=== PATIENT | female | born 1965 | race Caucasian/White ===

== ENCOUNTER 2019-01-10 12:51 | Inpatient (IN) ==
[2019-01-10 14:20] LABS: Basophils # 0.1 K/mcL (0.0-0.2); Basophils % 0.5 %; Eosinophils # 0.1 K/mcL (0.0-0.6); Eosinophils % 1.2 %; Hematocrit 51.5 % (35.3-44.9); Hemoglobin 17.1 g/dL (11.5-15.4); Immature Granulocytes % 0.3 % (0-4); Lymphocytes % 27.7 %; Mean Corpuscular HGB Conc 33.2 g/dL (31.6-35.5); Mean Corpuscular Hemoglobin 29.1 pg (28.0-33.3); Mean Corpuscular Volume 87.7 fL (83.0-100.0); Mean Platelet Volume 10.1 fL (9.4-12.4); Monocytes # 0.6 K/mcL (0.0-1.3); Monocytes % 5.3 %; Neutrophils # 6.9 K/mcL (1.6-8.9); Platelet Count 345 K/mcL (140-400); Red Blood Count 5.87 M/mcL (3.82-4.97); White Blood Count 10.7 K/mcL (4.3-11.1)
[2019-01-10 14:52] LABS: Alanine Aminotransferase 16 Units/L (7-52); Albumin 4.2 g/dL (3.5-5.7); Albumin/Globulin Ratio 1.3 (1.1-2.2); Alkaline Phosphatase 105 Units/L (34-104); Amylase 765 Units/L (29-103); Aspartate Amino Transferase 10 Units/L (13-39); BUN/Creatinine Ratio 15 (6-26); Bilirubin,Direct 0.1 mg/dL (0.0-0.2); Bilirubin,Indirect 0.3 mg/dL (0.0-1.2); Bilirubin,Total 0.4 mg/dL (0.3-1.0); Blood Urea Nitrogen 11 mg/dL (6-20); Calcium 9.7 mg/dL (8.6-10.3); Carbon Dioxide 25 mEq/L (23-29); Chloride 99 mEq/L (98-107); Globulin 3.2 g/dL (2.4-3.5); Glucose 247 mg/dL (70-105); Osmolality,Calculated 284 (280-300); Potassium 4.2 mEq/L (3.5-5.1); Sodium 133 mEq/L (136-145); Total Protein 7.4 g/dL (6.4-8.9); eGFR For African Americans > 60 (> 60); eGFR For Non-African Americans > 60 (> 60)
[2019-01-10] MEDS ORDERED: Isovue-370 500 ML BOTTLE IVP ONE (16:43)
[2019-01-10] MEDS ORDERED: Ondansetron 4 MG/2 ML VIAL IVP ONE (16:43)
[2019-01-10 17:24] LABS: Lipase > 1800 Units/L (11-82)
[2019-01-10] MEDS: 0.9 % Sodium Chloride 1,000 ML IVC SCH ×2 (17:52→19:45)
[2019-01-10] MEDS ORDERED: 0.9 % Sodium Chloride 1,000 ML IVC ONE (18:09)
[2019-01-10 18:15] LABS: Bilirubin,Urine Negative (Negative); Blood,Urine Negative (Negative); Clarity,Urine Cloudy (Clear); Color,Urine Yellow (Yellow); Glucose,Urine (UA) >=1000 mg/dL (Normal); Ketones,Urine 15 mg/dL (Negative); Leukocyte Esterase,Urine Small (Negative); Nitrite,Urine Positive (Negative); PH,Urine 5.5 pH Units (5.0-8.0); Protein,Urine Negative (Neg-Trace); Specific Gravity,Urine 1.029 (1.010-1.025); Urobilinogen,Urine Normal (Normal)
[2019-01-10 18:16] LABS: Bacteria,Urine Many per hpf (None-Few); Hyaline Casts,Urine None Seen per lpf (None-Few); RBC,Urine 0-3 per hpf (0-3); Squamous Epithelial Cell,Urine Many per lpf (None-Few); WBC,Urine 30-50 per hpf (0-3)
[2019-01-10] MEDS ORDERED: cefTRIAXone 1,000 MG in Water for inj. (sterile) 10 ML IVP ONE (18:24)
[2019-01-10] MEDS ORDERED: Ketorolac 15 MG/ML VIAL IVP ONE (19:08)
[2019-01-10] MEDS ORDERED: Naloxone 0.4 MG/ML INJ IVP PRN (22:33)
[2019-01-11] MEDS: Acetaminophen 325 MG TABLET PO PRN ×3 (02:28→22:32)
[2019-01-11] MEDS: 0.9 % Sodium Chloride 1,000 ML IVC SCH ×6 (02:28→17:27)
[2019-01-11] MEDS ORDERED: *HR* Dextrose 50 % in Water (Syg) 50 ML SYRINGE IVP PRN (03:43)
[2019-01-11] MEDS ORDERED: D5% in Water 1,000 ML IVC PRN (03:43)
[2019-01-11] MEDS ORDERED: Dextrose Gel 15 GM/37.5 ML TUBE PO PRN ×2 (03:43)
[2019-01-11 04:58] LABS: Basophils % 0.3 %; Eosinophils # 0.2 K/mcL (0.0-0.6); Eosinophils % 2.4 %; Hematocrit 46.1 % (35.3-44.9); Immature Granulocytes % 0.6 % (0-4); Lymphocytes # 2.5 K/mcL (0.6-4.6); Lymphocytes % 28.6 %; Mean Corpuscular HGB Conc 32.8 g/dL (31.6-35.5); Mean Corpuscular Hemoglobin 29.3 pg (28.0-33.3); Mean Corpuscular Volume 89.3 fL (83.0-100.0); Mean Platelet Volume 10.2 fL (9.4-12.4); Monocytes # 0.7 K/mcL (0.0-1.3); Monocytes % 7.6 %; Neutrophils # 5.3 K/mcL (1.6-8.9); Platelet Count 306 K/mcL (140-400); Red Blood Count 5.16 M/mcL (3.82-4.97); Red Cell Distribution Width 12.9 % (11.5-14.5); Segmented Neutrophils % 60.5 %; White Blood Count 8.7 K/mcL (4.3-11.1)
[2019-01-11 05:05] LABS: Prothrombin Time 10.8 Seconds (9.4-12.1)
[2019-01-11 05:08] LABS: Activated Partial Thrombo Time 30.8 Seconds (26.0-36.0)
[2019-01-11 05:11] LABS: Hemoglobin 15.1 g/dL (11.5-15.4)
[2019-01-11 05:18] LABS: Alanine Aminotransferase 12 Units/L (7-52); Albumin 3.1 g/dL (3.5-5.7); Albumin/Globulin Ratio 1.2 (1.1-2.2); Alkaline Phosphatase 80 Units/L (34-104); Aspartate Amino Transferase 9 Units/L (13-39); BUN/Creatinine Ratio 17 (6-26); Bilirubin,Total 0.2 mg/dL (0.3-1.0); Blood Urea Nitrogen 10 mg/dL (6-20); Calcium 8.5 mg/dL (8.6-10.3); Carbon Dioxide 22 mEq/L (23-29); Chloride 105 mEq/L (98-107); Chol/HDL Ratio 3.2 (0-4.9); Cholesterol 152 mg/dL (< 200); Globulin 2.5 g/dL (2.4-3.5); Glucose 219 mg/dL (70-105); HDL Cholesterol 48 mg/dL (40-59); LDL Cholesterol,Calculated 84 mg/dL (0-99); Magnesium 1.8 mg/dL (1.6-2.6); Osmolality,Calculated 286 (280-300); Phosphorous 3.2 mg/dL (2.7-4.5); Potassium 3.7 mEq/L (3.5-5.1); Sodium 135 mEq/L (136-145); Total Protein 5.6 g/dL (6.4-8.9); Triglycerides 101 mg/dL (< 150); eGFR For African Americans > 60 (> 60); eGFR For Non-African Americans > 60 (> 60)
[2019-01-11] MEDS: Insulin LISPRO 300 UNITS/3 ML VIAL SQ SCH ×4 (08:20→20:37)
[2019-01-11 09:28] LABS: Lipase > 1800 Units/L (11-82)
[2019-01-11] MEDS: *HR* Heparin 5,000 UNIT/ML VIAL SQ SCH (17:28)
[2019-01-11] MEDS ORDERED: Ondansetron 4 MG/2 ML VIAL IVP PRN (17:38)
[2019-01-12] MEDS: 0.9 % Sodium Chloride 1,000 ML IVC SCH ×3 (02:33→20:32)
[2019-01-12 04:33] LABS: Basophils % 0.2 %; Eosinophils # 0.1 K/mcL (0.0-0.6); Eosinophils % 1.5 %; Hematocrit 44.4 % (35.3-44.9); Hemoglobin 14.6 g/dL (11.5-15.4); Immature Granulocytes % 0.3 % (0-4); Lymphocytes % 22.7 %; Mean Corpuscular HGB Conc 32.9 g/dL (31.6-35.5); Mean Corpuscular Hemoglobin 29.4 pg (28.0-33.3); Mean Corpuscular Volume 89.5 fL (83.0-100.0); Mean Platelet Volume 10.4 fL (9.4-12.4); Monocytes # 0.6 K/mcL (0.0-1.3); Monocytes % 7.3 %; Platelet Count 288 K/mcL (140-400); Red Blood Count 4.96 M/mcL (3.82-4.97); Red Cell Distribution Width 12.8 % (11.5-14.5); White Blood Count 8.8 K/mcL (4.3-11.1)
[2019-01-12 04:53] LABS: BUN/Creatinine Ratio 13 (6-26); Blood Urea Nitrogen 7 mg/dL (6-20); Calcium 8.6 mg/dL (8.6-10.3); Carbon Dioxide 21 mEq/L (23-29); Chloride 107 mEq/L (98-107); Glucose 201 mg/dL (70-105); Magnesium 1.8 mg/dL (1.6-2.6); Osmolality,Calculated 282 (280-300); Phosphorous 2.9 mg/dL (2.7-4.5); Potassium 3.9 mEq/L (3.5-5.1); Sodium 134 mEq/L (136-145); eGFR For African Americans > 60 (> 60); eGFR For Non-African Americans > 60 (> 60)
[2019-01-12] MEDS: *HR* Heparin 5,000 UNIT/ML VIAL SQ SCH ×2 (05:44→18:10)
[2019-01-12] MEDS: Insulin LISPRO 300 UNITS/3 ML VIAL SQ SCH ×4 (10:47→20:32)
[2019-01-12] MEDS: cefTRIAXone 1,000 MG in Water for inj. (sterile) 10 ML IVP SCH (10:58)
[2019-01-12] MEDS: Acetaminophen 325 MG TABLET PO PRN (12:32)
[2019-01-13 02:25] LABS: Basophils % 0.4 %; Eosinophils # 0.1 K/mcL (0.0-0.6); Eosinophils % 1.3 %; Hematocrit 44.2 % (35.3-44.9); Hemoglobin 14.5 g/dL (11.5-15.4); Immature Granulocytes % 0.4 % (0-4); Lymphocytes % 24.8 %; Mean Corpuscular HGB Conc 32.8 g/dL (31.6-35.5); Mean Corpuscular Hemoglobin 28.6 pg (28.0-33.3); Mean Corpuscular Volume 87.2 fL (83.0-100.0); Mean Platelet Volume 10.1 fL (9.4-12.4); Monocytes # 0.5 K/mcL (0.0-1.3); Monocytes % 5.7 %; Neutrophils # 5.3 K/mcL (1.6-8.9); Platelet Count 287 K/mcL (140-400); Red Blood Count 5.07 M/mcL (3.82-4.97); Red Cell Distribution Width 12.8 % (11.5-14.5); Segmented Neutrophils % 67.4 %; White Blood Count 7.9 K/mcL (4.3-11.1)
[2019-01-13 02:42] LABS: BUN/Creatinine Ratio 9 (6-26); Blood Urea Nitrogen 5 mg/dL (6-20); Calcium 8.8 mg/dL (8.6-10.3); Carbon Dioxide 20 mEq/L (23-29); Chloride 105 mEq/L (98-107); Glucose 158 mg/dL (70-105); Magnesium 1.7 mg/dL (1.6-2.6); Osmolality,Calculated 283 (280-300); Phosphorous 2.9 mg/dL (2.7-4.5); Potassium 3.8 mEq/L (3.5-5.1); Sodium 136 mEq/L (136-145); eGFR For African Americans > 60 (> 60); eGFR For Non-African Americans > 60 (> 60)
[2019-01-13] MEDS: 0.9 % Sodium Chloride 1,000 ML IVC SCH (04:32)
[2019-01-13] MEDS: *HR* Heparin 5,000 UNIT/ML VIAL SQ SCH ×2 (05:05→18:08)
[2019-01-13 08:30] LABS: Lipase 1031 Units/L (11-82)
[2019-01-13] MEDS: cefTRIAXone 1,000 MG in Water for inj. (sterile) 10 ML IVP SCH (09:07)
[2019-01-13] MEDS: Insulin LISPRO 300 UNITS/3 ML VIAL SQ SCH ×3 (09:08→16:52)
[2019-01-13 11:32] LABS: Estimated Average Glucose 338 mg/dl
[2019-01-13 14:49] VITALS: BP 137/91
[2019-01-13 15:42] LABS: Estimated Average Glucose 332 mg/dl
[2019-01-16 10:44] LABS: ANA IgG by ELISA NONE DETECTED (None Detected); Immunoglobulin G Subclass 4 29 mg/dL (1-123)
== END 2019-01-13 18:53 | disposition home or self-care (01) | DRG 440 ==
LOC: EMEROOARM 12:51 → 3ANU 12:51
PROVIDERS: ADMIT Internal Medicine Nephrology; ATTEND Internal Medicine Nephrology

== ENCOUNTER 2020-02-19 18:45 | Inpatient (IN) ==
[2020-02-19] MEDS ORDERED: *HR* Heparin 5,000 UNIT/ML VIAL ONE (18:55)
[2020-02-19] MEDS ORDERED: *HR* Ticagrelor 90 MG TABLET ONE (18:55)
[2020-02-19] MEDS ORDERED: Aspirin 81 MG TAB.CHEW ONE (18:56)
[2020-02-19] MEDS ORDERED: 0.9 % Sodium Chloride 1,000 ML ONE ×3 (18:56→19:52)
[2020-02-19] MEDS ORDERED: Ondansetron 4 MG/2 ML VIAL ONE (19:00)
[2020-02-19] MEDS ORDERED: *HR* Heparin 5,000 UNIT/ML VIAL IVP PRN ×2 (19:01)
[2020-02-19] MEDS ORDERED: *HR* Heparin 5,000 UNIT/ML VIAL IVP ONE (19:01)
[2020-02-19] MEDS ORDERED: Ondansetron 4 MG/2 ML VIAL IVP ONE (19:01)
[2020-02-19] MEDS ORDERED: *HR* Ticagrelor 90 MG TABLET PO ONE (19:01)
[2020-02-19] MEDS ORDERED: Aspirin 81 MG TAB.CHEW PO ONE (19:01)
[2020-02-19] MEDS ORDERED: 0.9 % Sodium Chloride 1,000 ML IVC ONE (19:01)
[2020-02-19 19:15] LABS: Basophils # 0.1 K/mcL (0.0-0.2); Basophils % 0.6 %; Eosinophils # 0.2 K/mcL (0.0-0.6); Eosinophils % 1.8 %; Hemoglobin 17.4 g/dL (11.5-15.4); Immature Granulocytes % 0.4 % (0-4); Lymphocytes # 3.3 K/mcL (0.6-4.6); Lymphocytes % 30.5 %; Mean Corpuscular HGB Conc 33.5 g/dL (31.6-35.5); Mean Corpuscular Hemoglobin 29.4 pg (28.0-33.3); Mean Corpuscular Volume 87.8 fL (83.0-100.0); Mean Platelet Volume 10.2 fL (9.4-12.4); Monocytes # 0.9 K/mcL (0.0-1.3); Neutrophils # 6.3 K/mcL (1.6-8.9); Platelet Count 397 K/mcL (140-400); Red Blood Count 5.92 M/mcL (3.82-4.97); Segmented Neutrophils % 58.7 %; White Blood Count 10.8 K/mcL (4.3-11.1)
[2020-02-19] MEDS ORDERED: Heparin 25,000UNIT/250ML 1/2NS 25,000 UNIT/250 ML IV.SOLN IVC SCH (19:15)
[2020-02-19 19:23] LABS: INR 0.9; Prothrombin Time 10.5 Seconds (9.4-12.1)
[2020-02-19] MEDS ORDERED: ISOVUE-370 200 ML INFUS..BTL ONE ×2 (19:25→19:28)
[2020-02-19] MEDS ORDERED: Heparin 1,000 UNITS/500 mL 500 ML ONE (19:25)
[2020-02-19] MEDS ORDERED: Nitroglycerin 1,000 MCG/10 ML VIAL IV ONE (19:25)
[2020-02-19] MEDS ORDERED: *HR* Heparin 10,000 UNIT/10 ML VIAL ONE (19:25)
[2020-02-19] MEDS ORDERED: *HR* Midazolam HCl 5 MG/5 ML VIAL IVP ONE (19:30)
[2020-02-19 19:34] LABS: BUN/Creatinine Ratio 31 (6-26); Blood Urea Nitrogen 22 mg/dL (6-20); Calcium 9.6 mg/dL (8.6-10.3); Carbon Dioxide 19 mEq/L (23-29); Chloride 100 mEq/L (98-107); Glucose 398 mg/dL (70-105); Magnesium 1.9 mg/dL (1.6-2.6); Osmolality,Calculated 290 (280-300); Potassium 4.2 mEq/L (3.5-5.1); Sodium 130 mEq/L (136-145); Troponin I < 0.03 ng/mL (< 0.04); eGFR For African Americans > 60 (> 60); eGFR For Non-African Americans > 60 (> 60)
[2020-02-19] MEDS ORDERED: *HR* FentaNYL (PF) 100 MCG/2 ML VIAL ONE (19:47)
[2020-02-19 20:12] LABS: Adenovirus Not Detected (Not Detect); Bordetella Pertussis Not Detected (Not Detect); Chlamydophila pneumoniae Not Detected (Not Detect); Coronavirus 229E Not Detected (Not Detect); Coronavirus HKU1 Not Detected (Not Detect); Coronavirus NL63 Not Detected (Not Detect); Coronavirus OC43 Not Detected (Not Detect); Human Metapneumovirus Not Detected (Not Detect); Human Rhinovirus/Enterovirus Not Detected (Not Detect); Influenza A Subtype 2009 H1 Not Detected (Not Detect); Influenza B Not Detected (Not Detect); Mycoplasma pneumoniae Not Detected (Not Detect); Parainfluenza Virus 1 Not Detected (Not Detect); Parainfluenza Virus 2 Not Detected (Not Detect); Parainfluenza Virus 3 Not Detected (Not Detect); Parainfluenza Virus 4 Not Detected (Not Detect); Respiratory Syncytial Virus Not Detected (Not Detect)
[2020-02-19] MEDS ORDERED: Perflutren Lipid Microsphere 1.3 ML in 0.9 % Sodium Chloride 8.7 ML IVP PRN (20:14)
[2020-02-19] MEDS ORDERED: Naloxone 0.4 MG/ML INJ IVP PRN (20:21)
[2020-02-19] MEDS ORDERED: D5% in Water 1,000 ML IVC PRN (20:23)
[2020-02-19] MEDS ORDERED: Dextrose Gel 15 GM/37.5 ML TUBE PO PRN ×2 (20:23)
[2020-02-19] MEDS ORDERED: *HR* Dextrose 50 % in Water (Vial) 50 ML VIAL IVP PRN (20:23)
[2020-02-19 20:33] LABS: Estimated Average Glucose 378 mg/dl
[2020-02-19] MEDS: Insulin LISPRO 300 UNITS/3 ML VIAL SQ SCH (21:14)
[2020-02-19] MEDS: *HR* Ticagrelor 90 MG TABLET PO SCH (21:15)
[2020-02-19] MEDS: Levalbuterol Neb 0.63 MG/3 ML IH PRN (22:02)
[2020-02-20 02:42] LABS: Basophils % 0.4 %; Eosinophils # 0.1 K/mcL (0.0-0.6); Eosinophils % 0.5 %; Hematocrit 45.7 % (35.3-44.9); Immature Granulocytes % 0.5 % (0-4); Lymphocytes # 2.3 K/mcL (0.6-4.6); Lymphocytes % 23.5 %; Mean Corpuscular HGB Conc 33.3 g/dL (31.6-35.5); Mean Corpuscular Hemoglobin 29.3 pg (28.0-33.3); Mean Corpuscular Volume 88.1 fL (83.0-100.0); Mean Platelet Volume 10.4 fL (9.4-12.4); Monocytes # 0.7 K/mcL (0.0-1.3); Monocytes % 7.2 %; Neutrophils # 6.6 K/mcL (1.6-8.9); Platelet Count 344 K/mcL (140-400); Red Blood Count 5.19 M/mcL (3.82-4.97); Segmented Neutrophils % 67.9 %; White Blood Count 9.7 K/mcL (4.3-11.1)
[2020-02-20 02:45] LABS: Hemoglobin 15.2 g/dL (11.5-15.4)
[2020-02-20 03:02] LABS: BUN/Creatinine Ratio 28 (6-26); Blood Urea Nitrogen 15 mg/dL (6-20); Calcium 9.1 mg/dL (8.6-10.3); Carbon Dioxide 23 mEq/L (23-29); Chloride 106 mEq/L (98-107); Glucose 218 mg/dL (70-105); Osmolality,Calculated 287 (280-300); Potassium 4.3 mEq/L (3.5-5.1); Sodium 135 mEq/L (136-145); eGFR For African Americans > 60 (> 60); eGFR For Non-African Americans > 60 (> 60)
[2020-02-20 03:04] LABS: Magnesium 1.8 mg/dL (1.6-2.6); Phosphorous 3.3 mg/dL (2.7-4.5)
[2020-02-20] MEDS: Acetaminophen 325 MG TABLET PO PRN ×2 (04:48→10:49)
[2020-02-20] MEDS: Insulin LISPRO 300 UNITS/3 ML VIAL SQ SCH ×3 (07:56→16:37)
[2020-02-20] MEDS: *HR* Ticagrelor 90 MG TABLET PO SCH ×2 (07:57→21:09)
[2020-02-20] MEDS: Aspirin 81 MG TAB.CHEW PO SCH (07:57)
[2020-02-20] MEDS: lisinopriL 5 MG TABLET PO SCH (11:11)
[2020-02-20] MEDS: carvediloL 6.25 MG TABLET PO SCH (16:37)
[2020-02-20] MEDS: Levalbuterol Neb 0.63 MG/3 ML IH PRN (17:11)
[2020-02-20] MEDS ORDERED: Insulin LISPRO 300 UNITS/3 ML VIAL SQ SCH ×2 (21:00)
[2020-02-21] MEDS: carvediloL 6.25 MG TABLET PO SCH (08:42)
[2020-02-21] MEDS: Aspirin 81 MG TAB.CHEW PO SCH (08:42)
[2020-02-21] MEDS: *HR* Ticagrelor 90 MG TABLET PO SCH (08:42)
[2020-02-21] MEDS: lisinopriL 5 MG TABLET PO SCH (08:42)
[2020-02-21] MEDS: Insulin LISPRO 300 UNITS/3 ML VIAL SQ SCH (08:44)
[2020-02-21 10:58] VITALS: BP 149/73
== END 2020-02-21 09:40 | disposition home or self-care (01) | DRG 247 ==
LOC: EMEROOARM 18:45 → ICNU 18:45
PROVIDERS: ADMIT Internal Medicine; ATTEND Internal Medicine Cardiovascular Disease